=== PATIENT | female | born 1985 | race Hispanic/Latino ===

== ENCOUNTER 2018-07-27 08:48 | Day surgery (SDC) | payer BC ==
[2018-07-24 13:09] VITALS: BP 119/68
[2018-07-24 13:20] LABS: BASOPHILS % (AUTO) 0.6 % (0.0-5.0); EOSINOPHILS % (AUTO) 1.5 % (0.0-8.0); HEMATOCRIT 36.3 % (36-48); MEAN CORPUSCULAR HEMOGLOBIN 27.3 pg (27.0-33.0); MEAN CORPUSCULAR HGB CONC 32.7 g/dL (32.0-36.0); MEAN CORPUSCULAR VOLUME 83.6 fL (79-99); MONOCYTES % (AUTO) 6.6 % (3.0-13.0); NEUTROPHILS % (AUTO) 70.3 % (40.0-77.0); NUCLEATED RED BLOOD CELLS 0.1 % (0.0-0.19); PLATELET COUNT (AUTO) 302 K/uL (130-400); RED BLOOD CELL COUNT(AUTO) 4.35 MIL/uL (4.00-5.50); WHITE BLOOD COUNT (AUTO) 8.3 K/uL (4.8-10.8)
--- NOTE | 2018-07-24 13:29 | NUR ---
advised to bring home medications
[2018-07-24 13:35] LABS: CREATININE 0.8 mg/dL (0.5-1.5); POTASSIUM 4.2 mmol/L (3.5-5.1)
[2018-07-27] VITALS (14 sets, daily range): BP systolic 101–146; BP diastolic 51–80
[~2018-07-27] VITALS: Ht 161.3 cm; Wt 109.6 kg
[~2018-07-27 08:48] MED LIST: TYL3 PO
[2018-07-27] MEDS ORDERED: LIDOCAINE PF 2% 5ML ABBOJECT ONE (09:25)
[2018-07-27] MEDS ORDERED: ROCURONIUM 10MG/1ML SYR 10 MG/ML ML ONE (09:26)
[2018-07-27] MEDS ORDERED: SUCCINYLCHOLINE 200MG/10ML SYR ONE (09:26)
[2018-07-27] MEDS ORDERED: FENTANYL CITRATE PF 50 MCG/1 ML 2ML VIAL ONE ×4 (09:26→12:06)
[2018-07-27] MEDS ORDERED: PROPOFOL 10 MG/ML 20ML VIAL IV ONE (09:26)
[2018-07-27] MEDS ORDERED: MIDAZOLAM HCL 1 MG/ML 2ML VIAL ONE (09:34)
--- NOTE | 2018-07-27 09:45 | NUR ---
ANXIETY pt tearful very anxious concerning anesthesia , Sherman Ruiz PERMIT SPECIALIST spoke with pt ,orders given for anxiety after iv started ,applied lavender aromatabs to gown lavender scent
[2018-07-27] MEDS ORDERED: LACTATED RINGERS 1000ML 1,000 ML IV ONE (09:57)
[2018-07-27] MEDS: CEFAZOLIN SODIUM 1 GM VIAL ONE ×2 (10:02→10:50)
[2018-07-27] MEDS ORDERED: MELO-106 PO (10:09)
[2018-07-27] MEDS ORDERED: LEVO1TAB PO (10:10)
[2018-07-27] MEDS ORDERED: BUPIVACAINE/PF 0.25% 30ML VIAL IJ ONE (10:47)
[2018-07-27] MEDS ORDERED: GLYCOPYRROLATE 1 MG/5 ML SYRINGE ONE (11:31)
[2018-07-27] MEDS ORDERED: NEOSTIGMINE 5MG/5ML SYR IV ONE (11:32)
[2018-07-27] MEDS ORDERED: KETOROLAC TROMETHAMINE 30MG/ML ONE (11:32)
[2018-07-27] MEDS ORDERED: ONDANSETRON HCL 4 MG/2 ML VIAL ONE ×2 (11:40→12:13)
[2018-07-27] MEDS ORDERED: DEXAMETHASONE SOD PHOSPHATE 4 MG/ML 1ML VIAL ONE (12:02)
[2018-07-27] MEDS ORDERED: METOCLOPRAMIDE 10 MG/2 ML VIAL ONE (12:05)
[2018-07-27] MEDS ORDERED: PROMETHAZINE HCL 25 MG/ML 1ML AMPULE IM ONE (12:05)
== END 2018-07-27 14:20 | disposition home or self-care (01) ==
LOC: DAH 08:48
PROVIDERS: ATTEND Surgery
DX: K80.12 Calculus of gallbladder with acute and chronic cholecystitis without obstruction (principal); Z68.41 Body mass index [BMI] 40.0-44.9, adult; Z88.8 Allergy status to other drugs, medicaments and biological substances; Z87.891 Personal history of nicotine dependence; Z82.49 Family history of ischemic heart disease and other diseases of the circulatory system; Z83.3 Family history of diabetes mellitus; Z80.9 Family history of malignant neoplasm, unspecified; Z98.890 Other specified postprocedural states; Z79.899 Other long term (current) drug therapy; I10 Essential (primary) hypertension
CPT/HCPCS: 36415; 47562; 80048; 84703; 85025; 88304; A4218; A4450; A4649 ×2; C1769 ×3; J0330; J0690; J1100; J1885; J2001; J2250; J2405 ×2; J2550; J2704; J2710; J2765; J3010 ×4; J3490 ×2; J7030; J7120

== ENCOUNTER 2023-02-24 17:27 | Emergency (ER) | payer BC ==
[~2023-02-24] VITALS: Ht 160 cm; Wt 124.3 kg
[~2023-02-24 17:27] MED LIST changes: +LEVO1TAB PO; +MELO-106 PO
[2023-02-24 20:48] LABS: BASOPHILS # (AUTO) 0.07 K/uL (0.00-0.20); BASOPHILS % (AUTO) 0.5 % (0.0-5.0); EOSINOPHILS # (AUTO) 0.22 K/uL (0.00-0.70); EOSINOPHILS % (AUTO) 1.7 % (0.0-8.0); HEMATOCRIT 38.5 % (36-48); IMMATURE GRANULOCYTE ABSOLUTE 0.04 K/uL (0-1); LYMPHOCYTES # (AUTO) 3.2 K/uL (1.0-4.8); LYMPHOCYTES % (AUTO) 24.2 % (21.0-51.0); MEAN CORPUSCULAR HEMOGLOBIN 27.2 pg (27.0-33.0); MEAN CORPUSCULAR HGB CONC 32.5 g/dL (32.0-36.0); MEAN CORPUSCULAR VOLUME 83.7 fL (79-99); MONOCYTES # (AUTO) 0.9 K/uL (0.1-1.0); MONOCYTES % (AUTO) 7.1 % (3.0-13.0); NEUTROPHILS # (AUTO) 8.8 K/uL (1.8-7.7); NEUTROPHILS % (AUTO) 66.2 % (40.0-77.0); PLATELET COUNT (AUTO) 405 K/uL (130-400); RED CELL DISTRIBUTION WIDTH 14.1 % (11.0-15.5); WHITE BLOOD COUNT (AUTO) 13.2 K/uL (4.8-10.8)
[2023-02-24 21:01] LABS: INR < 0.93 (0.85-1.15); PROTHROMBIN TIME 10.3 SEC (9.6-11.6)
[2023-02-24 21:03] LABS: PARTIAL THROMBOPLASTIN TIME 30.9 SEC (26.3-35.5)
[2023-02-24 21:21] LABS: CREATININE 0.7 mg/dL (0.5-1.5); POTASSIUM 3.3 mmol/L (3.5-5.1)
[2023-02-24 21:25] LABS: BILIRUBIN,TOTAL 0.4 mg/dL (0.2-1.0); TOTAL PROTEIN, SERUM 8.6 g/dL (6.0-8.3)
[2023-02-25] MEDS ORDERED: POTASSIUM BICARB/CIT AC 25 MEQ TABLET.EFF PO ONE
[2023-02-25 01:06] VITALS: BP 106/58; PULSE 71; RESP 14; O2SAT 98
== END 2023-02-25 01:50 | disposition home or self-care (01) ==
LOC: EDH 17:27
DX: M79.604 Pain in right leg (principal); E87.6 Hypokalemia; M79.7 Fibromyalgia; E66.01 Morbid (severe) obesity due to excess calories; Z68.42 Body mass index [BMI] 45.0-49.9, adult; Z90.49 Acquired absence of other specified parts of digestive tract
CPT/HCPCS: 36415; 80053; 85025; 85610; 85730

== ENCOUNTER 2023-04-25 17:16 | Emergency (ER) | payer BC ==
[~2023-04-25] VITALS: Ht 162.6 cm; Wt 120.2 kg
[2023-04-25 17:25] VITALS: BP 141/83; PULSE 99; RESP 18; O2SAT 99
[2023-04-25] MEDS ORDERED: HYDROCODONE/ACETAMINOPHEN 5/325 MG TAB PO ONE (21:00)
[2023-04-25] MEDS ORDERED: MECLIZINE HCL 25 MG TABLET PO ONE (21:00)
== END 2023-04-25 22:13 | disposition home or self-care (01) ==
LOC: EDH 17:16
DX: S86.911A Strain of unspecified muscle(s) and tendon(s) at lower leg level, right leg, initial encounter (principal); M79.7 Fibromyalgia; Z79.3 Long term (current) use of hormonal contraceptives; Z88.5 Allergy status to narcotic agent; Z90.49 Acquired absence of other specified parts of digestive tract; X58.XXXA Exposure to other specified factors, initial encounter; Y93.89 Activity, other specified; Y92.89 Other specified places as the place of occurrence of the external cause; Y99.8 Other external cause status
CPT/HCPCS: 36415; 85378; 93971

== ENCOUNTER 2024-05-15 23:23 | Emergency (ER) | payer BC ==
[~2024-05-15] VITALS: Ht 160 cm; Wt 132.4 kg
[2024-05-16] MEDS: ketOROlac 30MG VIAL (30MG/ML) IM ONE (00:14)
[2024-05-16] MEDS: ORPHENADRINE 60MG/2ML IM ONE (00:14)
[2024-05-16] MEDS: TRIAMCINOLONE ACETONIDE 40 MG/ML 1ML VIAL IM ONE (00:15)
[2024-05-16] MEDS ORDERED: METH8TAB PO (00:34)
--- NOTE | 2024-05-16 00:34 | ERN ---
General Chief Complaint: Hip Pain/Injury Stated Complaint: C/O PAIN TO LEFT HIP RADIATING DOWN LEFT LEG X 4 D Time Seen by MD: 23:26 Source: patient History of Present Illness Initial Comments PATIENT IS A FLOOR KNEE YEAR OLD FEMALE COMING IN TO BE EVALUATED FOR LEFT GLUTEAL PAIN RADIATING DOWN THE LEG. PATIENT STATES THAT SHE HAS HAD THIS PAIN BEFORE BUT RECENTLY GOT WORSE. Allergies: Coded Allergies: meperidine (Unverified Allergy, Unknown, ITCHING, 04/25/23) Home Meds Reported Medications Levonorgestrel-Eth Estradiol (Myzilra) 1 Each Tablet, 1 EACH PO AD, TAB 07/27/18 Meloxicam (Meloxicam) 7.5 Mg Tablet, 7.5 MG PO [id number], TAB 07/27/18 Acetaminophen with Codeine (Tylenol with Codeine #3) 1 Tab Tab, 1 TAB PO DAILY PRN for PAIN LEVEL 6 TO 10, TAB 07/24/18 Past Medical History Past Medical History: Fibromyalgia Past Surgical History: Cholecystectomy, Social History Social History: Negative Female( History) LMP: Apr 26, 2024 : 1 Para: 1 Aborts: 0 ROS Dictation CONSTITUTIONAL: NO CHILLS, NO FEVER, NO WEAKNESS, NO DIAPHORESIS, NO MALAISE. HEAD/FACE: NO SIGNS OF TRAUMA. EENT: NO EYE PAIN, NO BLURRED VISION, NO TEARING, NO DOUBLE VISION, NO EAR PAIN, NO EAR DISCHARGE, NO NOSE PAIN, NO NASAL CONGESTION, NO THROAT PAIN, NO THROAT SWELLING, NO MOUTH PAIN. RESPIRATORY: NO COUGH, NO ORTHOPNEA, NO SOB, NO STRIDOR, NO WHEEZING. CARDIOVASCULAR: NO CHEST PAIN, NO EDEMA, NO PALPITATIONS, NO SYNCOPE. GASTROINTESTINAL/ABDOMINAL: NO ABDOMINAL PAIN, NO CONSTIPATION, NO DIARRHEA, NO NAUSEA, NO VOMITING. GENITOURINARY: NO ABNORMAL DISCHARGE, NO DYSURIA, NO FREQUENT URINATION, NO HEMATURIA. NO COMPLAINTS OF PAIN IN THE GENITALS. MUSCULOSKELETAL: NO BACK PAIN, NO GOUT, NO JOINT PAIN, NO JOINT SWELLING, MUSCLE PAIN, NO MUSCLE STIFFNESS, NO NECK PAIN. INTEGUMENTARY: NO CHANGE IN COLOR, NO CHANGE IN HAIR/NAILS, NO DRYNESS, NO LESION, NO LUMPS, NO RASH. NEUROLOGICAL/PSYCH: NO ANXIETY, NOT DEPRESSED, NO EMOTIONAL PROBLEM, NO HEADACHE, NO NUMBNESS, NO PRE-EXISTING DEFICIT, NO HISTORY OF SEIZURES, NO TREMORS, NO WEAKNESS. HEMATOLOGIC/LYMPHATIC: NOT ANEMIC, NO HISTORY OF BLOOD CLOTS, NO APPARENT BLEEDING, NO BRUISING, GLANDS NOT SWOLLEN. ALL SYSTEMS NEGATIVE, EXCEPT NOTED. Physical Exam Physical Exam Dictation VITAL SIGNS: REVIEWED. GENERAL APPEARANCE: ALERT, ORIENTED X3, NO ACUTE DISTRESS, OBESE. HEAD AND FACE: NON-TRAUMATIC. EYES: PERRL, PINK CONJUNCTIVAS, EYELID NO TRAUMA, ANTERIOR CHAMBER CLEAR. EARS: PINNAS INTACT AND NO SIGNS OF TRAUMA OR ERYTHEMA. EAR CANALS CLEAR AND NO DISCHARGE. TMS NO ERYTHEMA. NOSE: NO DISCHARGE, NO BLEEDING. OROPHARYNX: MOUTH NORMAL, TEETH NO CARIES, TONGUE PINK. PHARYNX CLEAR, NO ERYTHEMA. TONSILS NO EXUDATES, NO ABSCESSES NOTED. MUCOUS MEMBRANE MOIST. NECK: SUPPLE, NON-TENDER, NO THYROMEGALY, NO MASSES, NO JVD, NO BRUITS. BREAST: DEFERRED. CHEST: NO TENDERNESS, NO CREPITUS, NO PARADOXICAL MOVEMENT, NO RETRACTIONS. LUNGS: CLEAR, WELL-VENTILATED, SYMMETRIC, NO RALES, NO WHEEZING, NO RHONCHI, NO STRIDOR, GOOD BREATH SOUNDS BILATERALLY. HEART: REGULAR RATE, REGULAR RHYTHM, NO MURMUR, NO GALLOPS. VASCULAR: NO PERIPHERAL EDEMA. ABDOMEN: SOFT, POSITIVE BOWEL SOUNDS, NONDISTENDED, NO GUARDING, NONTENDER, NO REBOUND, NO MASSES NO HEPATOMEGALY, NO SPLENOMEGALY, NO SAVAGE'S SIGN, NO HERNIAS. RECTAL: DEFERRED. GENITAL: DEFERRED. NEUROLOGICAL: NORMAL SPEECH, GROSS MOTOR FUNCTION INTACT, GROSS SENSORY FUNCTION INTACT. MUSCULOSKELETAL: NECK NONTENDER, FULL RANGE OF MOTION, BACK NONTENDER, FULL RANGE OF MOTION. EXTREMITIES: NONTENDER, FULL RANGE OF MOTION. LEFT PIRIFORMIS MUSCLE TENDERNESS ON PALPATION SKIN: COLOR PINK, DRY, NO TURGOR, NO RASH, NO LACERATIONS, NO ABRASIONS, NO CONTUSIONS. LYMPHATICS: DEFERRED. Results Laboratory and Microbiology Lab and Micro Result Laboratory Tests Test 05/15/24 23:53 Urine HCG, Qualitative NEGATIVE (NEGATIVE) Labs Reviewed?: Yes MDM MDM: DIFFERENTIAL DIAGNOSIS:SCIATICA, LEFT LEG PIRIFORMITIS 49-YEAR-OLD FEMALE COMING IN TO BE EVALUATED FOR LEFT LEG PAIN. ON PHYSICAL EXAM TENDERNESS TO THE PIRIFORMIS MUSCLE, PALPATION OF THE PIRIFORMIS MUSCLE STIMULATES THE DISCOMFORT IN THE LEG. PATIENT WILL BE DISCHARGED WITH A DIAGNOSIS OF LEFT LEG SCIATICA WITH PIRIFORMIS. MEDICATION WILL BE PROVIDED FOR SYMPTOMATIC RELIEF. I ADVISED HER APPROPRIATE FOLLOW UP WITH PCP FOR LONG-TERM MANAGEMENT. ED Course Orders Procedure Category Date Status Time ,Urine Test LAB 05/15/24 Complete 23:53 Orphenadrine Citrate PHA 05/16/24 Complete (Norflex) 00:00 Triamcinolone Acet PHA 05/16/24 Complete 40mg/Ml 1ml (Kenalog 00:00 Ketorolac PHA 05/16/24 Complete Tromethamine 30mg/Ml 00:00 Current Medications Medications (Trade) Dose Ordered Sig/Susana Route PRN Reason Start Time Stop Time Status Last Admin Dose Admin Ketorolac Tromethamine (toRADol) 30 mg ONCE ONCE IM 05/16/24 00:00 05/16/24 00:01 DC 05/16/24 00:14 Orphenadrine Citrate (Norflex) 60 mg ONCE ONCE IM 05/16/24 00:00 05/16/24 00:01 DC 05/16/24 00:14 Triamcinolone Acetonide (Kenalog 40) 40 mg ONCE ONCE IM 05/16/24 00:00 05/16/24 00:01 DC 05/16/24 00:15 Vital Signs Date Time Temp Pulse Resp B/P (MAP) Pulse Ox O2 Delivery O2 Flow Rate FiO2 05/15/24 23:26 98.8 83 20 161/93 96 Room Air DX & DISP Disposition: Discharge Departure Impression: Primary Impression: Lesion of sciatic nerve, left lower limb Additional Impression: Piriformis muscle pain Condition: Stable Scripts Methylprednisolone (Medrol) 8 Mg Tablet 1 TAB PO BID for 5 Days, #10 TAB 0 Refills Prov: MAISHA BAUER MD 05/16/24 Additional Instructions: FOLLOW-UP WITH PRIMARY CARE PROVIDER IN 1 TO 2 DAYS. TAKE MEDICATIONS DIRECTED HERE IN THE EMERGENCY ROOM. OKAY TO CONTINUE HOME MEDICATIONS UNLESS OTHERWISE DISCUSSED DURING YOUR VISIT IN THE EMERGENCY ROOM TODAY. RETURN TO YOUR NEAREST EMERGENCY ROOM IF SYMPTOMS WORSEN OR IF THERE IS NO IMPROVEMENT. CALL 911 IF YOU NEED IMMEDIATE ASSISTANCE. TAKE TYLENOL [id number] NEEDED AND IF NO CONTRAINDICATIONS ARE PRESENT. INCREASE ORAL HYDRATION. A WOUND CULTURE OR URINE CULTURE WAS ORDERED HERE IN THE EMERGENCY ROOM DEPARTMENT PLEASE FOLLOW-UP WITH PRIMARY CARE PROVIDER AND ADVISE THEM TO GET REPEAT PORTS FROM OUR FACILITY. IF YOU HAD ANY CORBY WRAP/SPLINTS THAT WERE APPLIED HERE, PLEASE DO NOT REMOVE THEM UNTIL YOU SEE YOUR PRIMARY CARE OR SPECIALTY. REFERRALS: Referrals: IVAN MORRISON MD (PCP) Time of Disposition: 00:33 MAISHA BAUER MD May 16, 2024 00:34
[2024-05-16 00:35] VITALS: BP 128/61; PULSE 78; RESP 16; TEMP 97.5; O2SAT 98
[2024-05-16] MEDS ORDERED: NAPR-1505 PO (00:35)
== END 2024-05-16 00:51 | disposition home or self-care (01) ==
LOC: EDH 23:23
DX: G57.02 Lesion of sciatic nerve, left lower limb (principal); M79.7 Fibromyalgia; Z79.3 Long term (current) use of hormonal contraceptives; Z88.5 Allergy status to narcotic agent; Z90.49 Acquired absence of other specified parts of digestive tract; Z98.890 Other specified postprocedural states
CPT/HCPCS: 99284; 81025; 96372; J3301; J1885; J2360